=== PATIENT | female | born 1990 | race Caucasian/White ===

== ENCOUNTER 2016-11-24 10:49 | Emergency (ER) | payer OTHER ==
--- NOTE | 2016-11-24 13:00 | UC ---
Syncope/New Syncope HPI - HPI Summary HPI Summary: 26 year year old presents to the clinic complaining of a syncopal episode and bilateral big toe discomfort. SYNCOPE: Patient states that when she stood up quickly this morning, "I saw all black, and my hearing disappeared, and next thing I knew I woke up on the ground." Patient states that for years she experiences light-headedness when she goes from a seated to a standing position. Symptoms typical resolve after the patient stands still for a few seconds. Patient only experiences this sensation when going from a seated to standing position. Reports increased anxiety and depression r/t discontinuing Remeron 15mg prescription and increased fatigue, as well as a ten pound weight loss over the past ten days related to lack of appetite. Denies chance of ; heat intolerance; increased thirst; diaphoresis; SOB; or chest discomfort. TOE: Patient states that she has experienced bilateral big toe pain x 6+ months. Pain experienced in the nail area, described as a constant discomfort, worsened by touch. - History Of Current Complaint Chief Complaint: UCGeneralIllness Stated Complaint: FATIGUE,TOE COMPLAINT Time Seen by Provider: 11/24/16 12:03 Hx Obtained From: Patient Hx Last Menstrual Period: one week ago ?: Yes Onset/Duration: Gradual Onset Activity At Onset: Other - Position changes Timing: Frequency Of Episodes - Occurred once Context: Witnessed Associated Head Trauma: No Pain Scale Used: 0-10 Numeric Aggravating Factor(s): Nothing Alleviating Factor(s): Nothing Associated Signs And Symptoms: Positive: Negative, Lightheadedness. Negative: Chest Pain, Diaphoresis, Dizzy, Head Trauma (Remote), Head Trauma (Recent), Headache, Numbness, Palpitations, Shortness Of Breath, Vomiting, Weakness - Risk Factors Cardiac Risk Factors: Negative Dysrhythmia Risk Factors: Negative Risk Factor(s): Negative - Allergies/Home Medications Allergies/Adverse Reactions: Allergies Allergy/AdvReac Type Severity Reaction Status Date / Time No Known Allergies Allergy Verified 07/31/16 11:11 PMH/Surg Hx/FS Hx/Imm Hx Previously Healthy: Yes Endocrine History Of: Denies: Diabetes, Thyroid Disease, Hyperthyroidism, Hypothyroidism, Dyslipidemia Cardiovascular History Of: Denies: Cardiac Disorders, Hypertension, Pacemaker/ICD, Myocardial Infarction , Congestive Heart Failure, Atrial Fibrillation, Deep Vein Thrombosis, Bleeding Disorders Respiratory History Of: Denies: COPD, Asthma, Bronchitis, Pneumonia, Pulmonary Embolism GI/ History Of: Denies: Gastroesophageal Reflux, Ulcer, Gastrointestinal Bleed, Gall Bladder Disease, Kidney Stones, Diverticulitis, Renal Disease, Urosepsis Neurological History Of: Denies: TIA, CVA Psychological History Of: Reports: Anxiety, Depression - Surgical History Surgical History: Yes Surgery Procedure, Year, and Place: RIGHT TIBIA FX WITH HARDWARE - Family History Known Family History: Negative: Diabetes - Social History Occupation: Unemployed Lives: With Family - With boyfriend Alcohol Use: None Substance Use Type: None Smoking Status (MU): Heavy Every Day Tobacco Smoker Type: Cigarettes Amount Used/How Often: 1 PPD Have You Smoked in the Last Year: No Household Exposure Type: Cigarettes Review of Systems Constitutional: Fatigue Skin: Negative Eyes: Negative ENT: Negative Respiratory: Negative Cardiovascular: Negative Gastrointestinal: Other - 10 pound weight loss since discontinuing Remeron script two weeks ago. Genitourinary: Negative Motor: Negative Neurovascular: Negative Musculoskeletal: Negative Neurological: Negative Psychological: Anxious, Depressed All Other Systems Reviewed And Are Negative: Yes Physical Exam Triage Information Reviewed: Yes Appearance: Well-Appearing Vital Signs: Initial Vital Signs Temp 98.4 F 11/24/16 11:57 Pulse 80 11/24/16 11:57 Resp 20 11/24/16 11:57 BP 125/71 11/24/16 11:57 Pulse Ox 97 11/24/16 11:57 Vital Signs Reviewed: Yes Eye Exam: Normal Eyes: Positive: Conjunctiva Clear ENT Exam: Normal ENT: Positive: Normal ENT inspection Dental Exam: Normal Neck exam: Normal Neck: Positive: Supple, Nontender, No Lymphadenopathy Respiratory Exam: Normal Respiratory: Positive: Chest non-tender, Lungs clear, Normal breath sounds, No respiratory distress Cardiovascular Exam: Normal Cardiovascular: Positive: RRR, No Murmur, Pulses Normal, Brisk Capillary Refill Abdominal Exam: Normal Abdomen Description: Positive: Nontender, No Organomegaly, Soft Bowel Sounds: Positive: Present Musculoskeletal Exam: Normal Musculoskeletal: Positive: Strength Intact Neurological Exam: Normal Neurological: Positive: Alert Psychological Exam: Normal Skin Exam: Other Skin: Positive: Other - Bilateral toe nail fungus 1st toe Syncope Course/Dx - Differential Dx/Diagnosis Provider Diagnoses: Positional syncopal episode/conical mycosis/Anxiety Discharge - Discharge Plan Condition: Stable Disposition: HOME Patient Education Materials: Syncope (ED), Anxiety (ED) Referrals: Non Staff,Doctor [Medical Doctor] - If Needed (Keep your scheduled PCP appointment on 11/27/16. Seek medical attention sooner if you develop any of the Red flag signs as discussed.) Additional Instructions: Change positions slowing, when you first ambulate stand still before walking, if you feel dizzy, slowly sit back down. Seek immediate medical attention if you develop chest tightness or discomfort, unilateral weakness. In the mean time, make sure that every day you get 30 minutes of exercise, get into the sunshine if you can, talk with friends/family who support you and lift you up, eat enough real food with fruits and vegetables, and sleep at least 8 hours. Nail fungal infections are very common and can resolve on their own. Unfortunately, they are difficult to treat with medicines, and the courses of treatment can be weeks and months long (especially on the feet). I encourage you to discuss this with your primary care provider. In the mean time, fungal nail infections do not pose any significant threat to your health. When they spread the spread very slowly and usually keep to the skin an nails.
[2016-11-24 13:04] VITALS: BP 109/71
== END 2016-11-24 13:28 | disposition home or self-care (01) ==
LOC: UCCORT 10:49
DX: R55 Syncope and collapse (principal); B35.1 Tinea unguium; F41.9 Anxiety disorder, unspecified; F17.210 Nicotine dependence, cigarettes, uncomplicated
CPT/HCPCS: 93005; 99211; G0463

== ENCOUNTER 2017-04-02 14:19 | Emergency (ER) | payer OTHER ==
[2017-04-02 16:14] VITALS: BP 104/62
--- NOTE | 2017-04-02 16:32 | UC ---
Complaint Female HPI - HPI Summary HPI Summary: Presents for treatment of recurrent bacterial vaginosis, which she identifies by odor and discharge. She declined vaginal and pelvic exam, electing treatment based on symptoms alone. She states that she has had this treated every couple of months, but cannot say when last treated. Sexually active, one partner, not using contraception. Suggested that she consider protection as she needs treatment of hepatitis C, and she states that her partner pulls out and she thinks that he is infertile anyway. She declines assessment of STD's and declines a test. - History Of Current Complaint Chief Complaint: UCGU Stated Complaint: URINARY COMPLAINT Time Seen by Provider: 04/02/17 16:11 Hx Obtained From: Patient Hx Last Menstrual Period: 03/22/17 ?: No Onset/Duration: Gradual Onset Timing: Constant Severity Initially: Mild Severity Currently: Mild Character: Not Applicable Aggravating Factor(s): Urination Alleviating Factor(s): Nothing Associated Signs And Symptoms: Positive: Negative - Allergies/Home Medications Allergies/Adverse Reactions: Allergies Allergy/AdvReac Type Severity Reaction Status Date / Time No Known Allergies Allergy Verified 04/02/17 16:14 Home Medications: Home Medications Gabapentin CAP(*) [Neurontin 300 CAP(*)] 300 mg PO TID 04/02/17 [History Confirmed 04/02/17] Mirtazapine TAB* [Remeron TAB*] 30 mg PO BEDTIME 04/02/17 [History Confirmed ] Omeprazole CAP* [Prilosec CAP* 20 MG] 20 mg PO DAILY 04/02/17 [History Confirmed 04/02/17] PMH/Surg Hx/FS Hx/Imm Hx - Additional Past Medical History Additional PMH: recently diagnosed with hepatitis C, but deferring treatment because she wants to travel to [place] first. Endocrine History Of: Denies: Diabetes, Thyroid Disease, Hyperthyroidism, Hypothyroidism, Dyslipidemia Cardiovascular History Of: Denies: Cardiac Disorders, Hypertension, Pacemaker/ICD, Myocardial Infarction , Congestive Heart Failure, Atrial Fibrillation, Deep Vein Thrombosis, Bleeding Disorders Respiratory History Of: Denies: COPD, Asthma, Bronchitis, Pneumonia, Pulmonary Embolism GI/ History Of: Denies: Gastroesophageal Reflux, Ulcer, Gastrointestinal Bleed, Gall Bladder Disease, Kidney Stones, Diverticulitis, Renal Disease, Urosepsis Neurological History Of: Denies: TIA, CVA Psychological History Of: Reports: Anxiety, Depression Other History Of: Hepatitis C - Surgical History Surgical History: Yes Surgery Procedure, Year, and Place: RIGHT TIBIA FX WITH HARDWARE - Family History Known Family History: Positive: Other - father committed suicide, mother is healthy Negative: Diabetes - Social History Occupation: Unemployed Lives: With Family Alcohol Use: None Substance Use Type: None Smoking Status (MU): Heavy Every Day Tobacco Smoker Type: Cigarettes Amount Used/How Often: 1 PPD Have You Smoked in the Last Year: No Household Exposure Type: Cigarettes Review of Systems Constitutional: Negative Skin: Negative Eyes: Negative ENT: Negative Respiratory: Cough - Smokes, has had a congested cough recently but no shortness of breath, Other - smokes cigarettes and uses marijuana regularly Cardiovascular: Negative Gastrointestinal: Other - had elevated LFT's during time of admission for tx of depression, hep C diagnosed at that time. Enzyes decreased during admission. Genitourinary: Other - discharge and odor. Motor: Negative Neurovascular: Negative Musculoskeletal: Negative Neurological: Negative Psychological: Depressed All Other Systems Reviewed And Are Negative: Yes Physical Exam Triage Information Reviewed: Yes Appearance: Well-Appearing, No Pain Distress Vital Signs: Initial Vital Signs Temp 98.7 F 04/02/17 16:10 Pulse 82 04/02/17 16:10 Resp 16 04/02/17 16:10 BP 104/62 04/02/17 16:10 Pulse Ox 99 04/02/17 16:10 Vital Signs Reviewed: Yes Eyes: Positive: Conjunctiva Clear ENT: Positive: Pharynx normal Neck: Positive: Supple, Nontender Respiratory: Positive: Lungs clear, Normal breath sounds Cardiovascular: Positive: RRR, No Murmur Abdomen Description: Positive: Nontender, No Organomegaly, Other: - declined it applications developer exam Bowel Sounds: Positive: Present Musculoskeletal Exam: Normal Neurological: Positive: Alert, Muscle Tone Normal Psychological Exam: Other - mildly depressed mood and affect. Complaint Female Dx - Course Course Of Treatment: metronidazole for treatment of suspected BV - Differential Dx/Diagnosis Differential Diagnosis/HQI/PQRI: Sexually Transmitted Disease, Urinary Tract Infection, Other - vaginosis Provider Diagnoses: bacterial vaginosis by history. Discharge - Discharge Plan Condition: Stable Disposition: HOME Prescriptions: Metronidazole [Flagyl 500 MG TAB] 500 mg PO BID #14 tab Patient Education Materials: Bacterial Vaginosis (ED) Referrals: Eliana Sinha MD [Medical Doctor] - Additional Instructions: You have a prescription for flagyl (metronidazole) to treat bacterial vaginosis. Please take the full course of treatment. You cannot drink alcohol during this treatment because it will cause vomiting. Use of probiotics (the kind of healthy bacteria you get from yogurt) might decrease the frequency of this. Follow up with your GI doctor to discuss treatment of hepatitis C is strongly advised.
== END 2017-04-02 16:44 | disposition home or self-care (01) ==
LOC: UCCORT 14:19
DX: N76.0 Acute vaginitis (principal); B19.20 Unspecified viral hepatitis C without hepatic coma; F41.8 Other specified anxiety disorders; F17.210 Nicotine dependence, cigarettes, uncomplicated
CPT/HCPCS: 81003; 99212; G0463